=== PATIENT | female | born 1995 | race African-American/Black ===

== ENCOUNTER 2016-10-30 18:35 | Emergency (ER) | payer MEDICAID ==
[2016-10-30 18:49] VITALS: BP 112/75
--- NOTE | 2016-10-30 20:20 | ED ---
Breast Complaint - HPI Summary HPI Summary: pt here w/ Rt breast swelling at times. First noticed after having her second child, the tissue in both of her breast was more palpable, lumpy. There has been an area along her Rt lateral breast near her armpit that started once her breast milk dried up and noticed again past couple of days since stopping her control. SHe has been taking control the past 6 months since delivery of her last child who is 6 months old now. She is on her period today. Denies pain, redness, nipple d/c, nipple bleeding, fever, chills, N/V/D, chest pain, ab pain, and/or lumps in her armpit/along arm. She believes this is from hormone changes but also reports pushing a stroller daily up/down a hill daily w / 2 children in it - wondering if this is contributing? Denies acute injury here and symptoms are not worse w/ pushing stroller or moving arms. She had first child in her teens and does not have routine BOATBUILDER SUPERVISOR care. She just moved here from [facility] and now has insurance - looking to establish with PCP/BOATBUILDER SUPERVISOR. - History of Current Complaint Hx Obtained From: Patient PMH/Surg Hx/FS Hx/Imm Hx Previously Healthy: Yes Infectious Disease History: No Infectious Disease History: Denies: Traveled Outside the [place] in Last 30 Days - Social History Occupation: Unemployed Lives: With Family - 2 children, boyfriend Alcohol Use: Weekly Hx Substance Use: No Substance Use Type: Reports: None. Denies: Excessive Caffeine Hx Tobacco Use: No Smoking Status (MU): Never Smoked Tobacco Review of Systems Constitutional: Negative Negative: Fever, Chills, Fatigue Cardiovascular: Negative Respiratory: Negative Gastrointestinal: Negative Negative: Arthralgia, Myalgia Negative: Rash, Bruising Negative: Weakness, Paresthesia, Numbness Psychological: Normal All Other Systems Reviewed And Are Negative: Yes Physical Exam Triage Information Reviewed: Yes Vital Signs On Initial Exam: Initial Vitals Temp Pulse Resp BP Pulse Ox 97.2 F 67 16 112/75 100 10/30/16 18:39 10/30/16 18:39 10/30/16 18:39 10/30/16 18:39 10/30/16 18:39 Vital Signs Reviewed: Yes Appearance: Positive: Well-Appearing, No Pain Distress, Well-Nourished Skin: Positive: Warm, Dry - no erythema, no ecchymosis over affected area Head/Face: Positive: Normal Head/Face Inspection Eyes: Positive: Normal, EOMI, Conjunctiva Clear ENT: Positive: Hearing grossly normal Neck: Positive: Supple, Nontender, No Lymphadenopathy Respiratory/Lung Sounds: Positive: Clear to Auscultation, Breath Sounds Present Cardiovascular: Positive: Normal, RRR, S1, S2 Abdomen Description: Positive: Nontender, Soft Bowel Sounds: Positive: Present Pelvic Exam: Positive: other - B/L breast exam reveals fibrocystic breast tissue - no renzo masses palpated - skin w/o erythema, peau de orange and no nipple d/c - NTTP; faint area of bogginess over Rt breast along axillary border about 3cm in size - NTTP, no fluctuance, no induration, no skin overlying skin change, no renzo mass; no axillary, humeral or epitrochlear LN's palpated B/L Musculoskeletal: Positive: Normal, Strength/ROM Intact - pec m NTTP and appears to be symmetric compared to Lt Neurological: Positive: Normal, Sensory/Motor Intact, Alert, Oriented to Person Place, Time, CN Intact II-III Psychiatric: Positive: Normal Diagnostics - Vital Signs Vital Signs Temp Pulse Resp BP Pulse Ox 10/30/16 18:39 97.2 F 67 16 112/75 100 - Laboratory Lab Statement: Any lab studies that have been ordered have been reviewed, and results considered in the medical decision making process. Breast Pain Course/Dx - Course Course Of Treatment: Pt presents w/ Rt lateral breast change/swelling. Her clinical exam is unremarkable for renzo cancerous findings however it was discussed that she needs further w/u to better asses definitive cause of issue. She agrees to f/u w/ PCP, will call tomorrow to establish. Danger s/sx reviewed and lifestyle habits also reviewed to prevent worsening. Suspect this could be breast tissue change d/t hormone changes but again, w/o more definitive testing , cannot say for certain. Pt aware and agrees w/ plan. - Diagnoses Provider Diagnoses: Fibrocystic changes of right breast Discharge - Discharge Plan Condition: Stable Disposition: HOME Patient Education Materials: Fibrocystic Breast Changes (ED) Referrals: No Primary Care Phys,NOPCP [Primary Care Provider] - [facility] [place] [facility] REFERRAL [Outside] Rosalind Collado MD [Medical Doctor] - Additional Instructions: You appear to have faint swelling of the Rt lateral breast. The cause and definitive diagnosis is unclear today however it is suspected this may be due to hormone changes. It is advised that you have close follow-up with PCP - call tomorrow to establish. You may also consider establishing wit a BOATBUILDER SUPERVISOR - both provider contacts have been offered here. In the meantime, avoid control pills, caffeine and nicotine as well as alcohol to reduce risk of irritating tissue. Use condoms for control until cleared to return to use by PCP or BOATBUILDER SUPERVISOR. *If you develop worsening of swelling, redness, fever, chills, nipple discharge , return to ED
== END 2016-10-30 20:25 | disposition home or self-care (01) ==
LOC: ED 18:35
DX: N60.11 Diffuse cystic mastopathy of right breast (principal)
CPT/HCPCS: 99281

== ENCOUNTER 2017-10-23 16:37 | Emergency (ER) | payer OTHER ==
[2017-10-23 19:15] LABS: Urine Appearance Cloudy; Urine Blood 2+ (Negative); Urine Color Yellow; Urine Ketones Trace (Negative); Urine Protein 1+(30 mg/dL) (Negative); Urine Specific Gravity 1.031 (1.010-1.030); Urine Urobilinogen Negative (Negative)
[2017-10-23 19:32] LABS: ABS Basophils 0 10^3/ul (0-0.2); ABS Eosinophils 0.1 10^3/ul (0-0.6); ABS Lymphocytes 2.5 10^3/ul (1.0-4.8); ABS Monocytes 0.7 10^3/ul (0-0.8); ABS Neutrophils 8.2 10^3/ul (1.5-7.7); ABS Nucleated RBC 0 10^3/ul; Hematocrit 35 % (35-47); Hemoglobin 12.2 g/dl (12.0-16.0); Lymphocyte % 21.6 % (25-47); Mean Corpuscular HGB Conc 35 g/dl (31-36); Mean Corpuscular Hemoglobin 29 pg (27-31); Mean Corpuscular Volume 85 fL (80-97); Mean Platelet Volume 6.9 um3 (7.4-10.4); Nucleated Red Blood Cells % 0; Platelet Count 268 10^3/ul (150-450); Red Blood Count 4.16 10^6/ul (4.00-5.40); Red Cell Distribution Width 13 % (10.5-15); White Blood Count 11.5 10^3/ul (3.5-10.8)
[2017-10-23 19:40] LABS: INR 0.98 (0.77-1.02)
[2017-10-23] MEDS ORDERED: Cephalexin CAP* 500 MG PO ONE (19:55)
--- NOTE | 2017-10-23 20:14 | RAD ---
HISTORY: Vaginal bleeding in a female COMPARISONS: None TECHNIQUE: Multiple transverse and longitudinal ultrasound images were obtained of the pelvis using grayscale, color flow, spectral and M-mode sonographic imaging. FINDINGS: UTERUS: The uterus is normal in shape, size, contour, and echotexture. GESTATION: There is a single live intrauterine gestation. The crown-rump length measures 2.6 cm yielding a gestational age of 9 weeks and 3 days. The mean gestational sac diameter measures 2.8 centimeters yielding a gestational age of 8 weeks and 0 days. cardiac motion is detected at a rate of 176 beats per minute. CUL-DE-SAC: There is no free fluid within the cul-de-sac. RIGHT OVARY: The right ovary measures 3.0 x 2.5 x 2.3 cm. LEFT OVARY: The left ovary measures 2.3 x 1.5 x 1.4 cm. IMPRESSION: Single live intrauterine gestation with a crown-rump length yielding a gestational age of 9 weeks and 3 days.
[2017-10-23 20:58] VITALS: BP 103/69
--- NOTE | 2017-10-23 21:43 | ED ---
Charles Mcleod Jade, scribed for Randi Blanc MD on 10/23/17 at 1924 . - HPI Summary HPI Summary: Pt is a 22 y/o female who presents to the ED sent by her railroad mechanic c/o vaginal bleeding. She is currently 8 weeks , and states that 2 days ago she started to have light spotting at 15:00 which has been worsening. Pt states the bleeding is not profuse, rather she sees the blood when she wipes after urination. Pt started taking medications for her UTI 2 days ago, but stopped due to vomiting. She also c/o lower abdominal cramping pain rated 1/10 in severity that began today. /A1. - History of Current Complaint Chief Complaint: EDOBProblems Stated Complaint: 8 WKS PREG/BLEEDING Time Seen by Provider: 10/23/17 18:20 Hx Obtained From: Patient Onset/Duration: Started Days Ago - 2, Worse Since Timing: Constant Current Severity: Mild Pain Intensity: 1 Location of Pain: Suprapubic Character: Cramping Aggravating Factors: Nothing Alleviating Factors: Nothing Associated Signs and Symptoms: Positive: Vaginal Bleeding or Discharge - Bleeding - Allergies/Home Medications Allergies/Adverse Reactions: Allergies Allergy/AdvReac Type Severity Reaction Status Date / Time No Known Allergies Allergy Verified 10/23/17 18:16 Home Medications: Home Medications Vitamin TAB* 1 tab PO DAILY 10/23/17 [History Confirmed 10/23/17] metroNIDAZOLE [Metronidazole] 500 mg PO BID 10/23/17 [History Confirmed 10/23/17 ] PMH/Surg Hx/FS Hx/Imm Hx Endocrine/Hematology History: Reports: Other Endocrine/Hematological Disorders - Fibrocystic breast History: Reports: Other Problems/Disorders - Miscarriage Infectious Disease History: No Infectious Disease History: Denies: Traveled Outside the [place] in Last 30 Days - Family History Known Family History: Negative: Cardiac Disease, Diabetes - Social History Alcohol Use: None Hx Substance Use: No Substance Use Type: Reports: None Hx Tobacco Use: No Smoking Status (MU): Never Smoked Tobacco Review of Systems Positive: Abdominal Pain - Lower Positive: other - Vaginal bleeding All Other Systems Reviewed And Are Negative: Yes Physical Exam - Summary Physical Exam Summary: GENERAL: Patient is a well-developed and nourished F who is lying comfortable in the stretcher. Patient is not in any acute respiratory distress. HEAD AND FACE: Normocephalic. EYES: PERRLA, EOMI x 2. EARS: Hearing grossly intact. MOUTH: Oropharynx within normal limits. NECK: Supple, trachea is midline, no adenopathy, no JVD, no carotid bruit. CHEST: Symmetric, no tenderness at palpation LUNGS: Clear to auscultation bilaterally. No wheezing or crackles. CVS: Regular rate and rhythm, S1 and S2 present, no murmurs or gallops appreciated. ABDOMEN: Soft, non-tender. Bowel sounds are normal. No abdominal abnormal pulsations. : scant bleeding in vaginal vault, OS is closed, no CMT EXTREMITIES: Full ROM in all major joints, no edema, no cyanosis or clubbing. NEURO: Alert and oriented x 3. No acute neurological deficits. Speech is normal and follows commands. SKIN: Dry and warm. - Physical Exam Triage Information Reviewed: Yes Vital Signs Reviewed: Yes Diagnostics - Vital Signs Vital Signs Temp Pulse Resp BP Pulse Ox 10/23/17 16:47 97.3 F 68 17 106/51 100 - Laboratory Lab Results: Lab Results 10/23/17 Range/Units 18:56 Urine Color Yellow Urine Appearance Cloudy Urine pH 7.0 (5-9) Ur Specific [place] 1.031 H (1.010-1.030) Urine Protein 1+(30 mg/dl) A (Negative) Urine Ketones Trace A (Negative) Urine Blood 2+ A (Negative) Urine Nitrate Negative (Negative) Urine Bilirubin Negative (Negative) Urine Urobilinogen Negative (Negative) Ur Leukocyte Esterase 1+ A (Negative) Urine WBC (Auto) 2+(11-20/hpf) A (Absent) Urine RBC (Auto) 3+(>10/hpf) A (Absent) Ur Squamous Epith Cells Present A (Absent) Urine Bacteria Absent (Absent) Urine Glucose Negative (Negative) Urine Ascorbic Acid * A (Negative) Result Diagrams: 10/23/17 19:21 10/23/17 19:21 Lab Statement: Any lab studies that have been ordered have been reviewed, and results considered in the medical decision making process. - Ultrasound No standard instances Ultrasound Interpretation: Positive (See Comments) - US 18:49: Single live intrauterine gestation with a crown-rump length yielding a gestational age of 9 weeks and 3 days. HR is 176 bpm. ED physician reviewed radiology report. Ultrasound Interpretation Completed By: Radiologist Re-Evaluation - Re-Evaluation First Eval Re-Evaluation Time: 20:02 Change: Unchanged Comment: Discussed UA results with pt. She will be switched to Keflex for her UTI, and a pelvic exam will be done. 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 She is currently 8 weeks , and states that 2 days ago she started to have light spotting at 15:00 which has been worsening. Pt states the bleeding is not profuse, rather she sees the blood when she wipes after urination. Pt started taking medications for her UTI 2 days ago, but stopped due to vomiting. She also c/o lower abdominal cramping pain rated 1/10 in severity that began today. /A1. The physical exam was normal. A pelvic exam revealed scant bleeding in vaginal vault, OS is closed, no CMT. A US revealed a single live intrauterine gestation with a crown- rump length yielding a gestational age of 9 weeks and 3 days, HR is 176 bpm. Final dx were vaginal bleeding during , and UTI during . Labs reveal blood type B postive, so no rhogam is required, and urine shows UTI. Pt will be switched to Keflex for the UTI. 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 Pt will be discharged, and strict return precautions were discussed. - Diagnoses Provider Diagnoses: UTI (urinary tract infection) during , Vaginal bleeding during Discharge - Sign-Out/Discharge Documenting (check all that apply): Discharge/Admit/Transfer - Discharge - Discharge Plan Condition: Stable Disposition: HOME Prescriptions: Cephalexin CAP* [Keflex CAP*] 500 mg PO QID 7 Days #28 cap Patient Education Materials: Threatened Miscarriage (ED), Urinary Tract Infection in (ED) Forms: *Work Release Referrals: [facility] [place] [facility] REFERRAL [Outside] - 3 Days Additional Instructions: RETURN TO THE ED WITH NEW OR WORSENING SYMPTOMS. The documentation as recorded by the Charles celeste Jade accurately reflects the service I personally performed and the decisions made by me, Randi Blanc MD.
== END 2017-10-23 20:57 | disposition home or self-care (01) ==
LOC: ED 16:37
DX: O20.8 Other hemorrhage in early pregnancy (principal); O23.41 Unspecified infection of urinary tract in pregnancy, first trimester; Z3A.08 8 weeks gestation of pregnancy; R10.30 Lower abdominal pain, unspecified
CPT/HCPCS: 36415; 76801; 80053; 81003; 81015; 84702; 85025; 85610; 86850; 86900; 86901; 87086; 99283; A9270-GY